=== PATIENT | male | born 1960 | race Caucasian/White ===

== ENCOUNTER 2020-08-27 19:27 | Inpatient (IN) ==
[2020-08-27 20:26] LABS: Basophils # (auto) 0.01 K/uL (0-0.2); Basophils % (auto) 0.1 %; Hematocrit (blood only) 37.7 % (42-52); Hemoglobin 12.9 g/dL (14.0-18.0); Immature Granulocytes # (auto) 0.03 K/uL (0.00-0.02); Immature Granulocytes % (auto) 0.4 %; Lymphocytes % (auto) 10.9 %; Mean Corpuscular Hemoglobin 28.5 pg (25-34); Mean Corpuscular Hgb Conc 34.2 g/dL (32-36); Mean Corpuscular Volume 83.2 fL (80-100); Mean Platelet Volume 9.7 fL (7.4-10.4); Monocytes # (auto) 0.44 K/uL (0.11-0.59); Monocytes % (auto) 5.3 %; Neutrophils # (auto) 6.85 K/uL (1.4-6.5); Neutrophils % (auto) 83.3 %; Platelet Count 287 K/uL (130-400); RDW Coefficient of Variation 12.7 % (11.5-14.5); RDW Standard Deviation 38.6 fL (36.4-46.3); Red Blood Count 4.53 M/uL (4.7-6.1); White Blood Count 8.23 K/uL (4.8-10.8)
[2020-08-27 20:38] LABS: Prothrombin Time 10.6 Seconds (9.0-12.0)
[2020-08-27 20:47] LABS: Alanine Aminotransferase 108 U/L (12-78); Albumin Level 2.5 gm/dl (3.4-5.0); Aspartate Aminotransferase 102 U/L (15-37); BUN Creatinine Ratio 17.4 (10-20); Blood Urea Nitrogen 21 mg/dl (7-18); Calcium 8.5 mg/dl (8.5-10.1); Carbon Dioxide 24 mmol/L (21-32); Chloride 98 mmol/L (98-107); Est GFR (African American) 77.8 ml/min; Est GFR (Non-African American) 67.1 ml/min; Glucose 218 mg/dl (70-99); Magnesium 2.1 mg/dl (1.8-2.4); Potassium 3.8 mmol/L (3.5-5.1); Sodium 128 mmol/L (136-145)
[2020-08-27 20:49] LABS: D Dimer 1490 ug/L FEU (0-500)
[2020-08-27 20:50] LABS: Albumin Globulin Ratio 0.6 (0.9-2); Alkaline Phosphatase 168 U/L (45-117); Bilirubin,Total 0.6 mg/dl (0.2-1); Globulin 4.5 gm/dl (2.5-4.0); Troponin I < 0.015 ng/ml (0-0.045)
[2020-08-27] MEDS ORDERED: dexAMETHasone**PF** 10 MG/ML VIAL IV ONE (21:01)
[2020-08-27] MEDS ORDERED: SODIUM CHLORIDE 0.9% 1000ML 500 ML IV ONE (21:01)
[2020-08-27] MEDS ORDERED: ACETAMINOPHEN 500 MG TAB PO STA (21:05)
--- NOTE | 2020-08-27 21:07 | XRay Report ---
XR chest 1V portable HISTORY: Shortness of breath. COMPARISON: None. FINDINGS: No pneumothorax. No pleural effusions. The cardiac silhouette is top normal in size. Multif ocal bilateral airspace opacities most pronounced within the mid to lower lung zones. This favors a m oderate multifocal pneumonia. IMPRESSION: Multifocal bilateral airspace opacities likely representing a moderate viral pneumonia. ACT 112: Negative or not required by law. Electronically signed by: Zachariah Jin M.D. 08/27/2020 9:06 PM
[2020-08-27] MEDS ORDERED: OPTIRAY 350 500ml IV ONE (22:14)
--- NOTE | 2020-08-27 22:39 | Emergency Department Note ---
Impression & Plan Pneumonia due to COVID-19 virus, Hypoxia, Breathlessness ED Provider Note Provider: Benitez Us MD DATE OF SERVICE: 08/27/2020 CHIEF COMPLAINT: Shortness of breath, Covid HISTORY OF PRESENT ILLNESS: Patient is a 60-year-old gentleman presented today via ambulance stating he is 12 days into a Covid infection complaining of shortness of breath and hypoxia. Evidently has been sick at home. Several days ago seen at [place] emergency department and given an inhaler. States last several days his is found oxygen for use at home but he is noted his pulse ox up into the 80s even on this oxygen. He is very short of breath and states he feels weak and very tired and having some nausea and diarrhea at times. He feels very thirsty and dehydrated. Denies significant leg swelling or any falls or fainting. EMS was placed the patient on 6 L of oxygen a satting in the mid 90s. States he has not had much to eat or drink today and last took some Tylenol in the afternoon for intermittent fevers. States his is doing okay at home. REVIEW OF SYSTEMS: A total of 10 review of systems was obtained and negative except as stated above in the HPI. PAST MEDICAL HISTORY: As noted above MEDICATIONS: Reviewed with the patient he denies significant home prescription medications to me. SOCIAL HISTORY: , lives at home in [place], non-smoker PHYSICAL EXAM: GENERAL: alert and oriented seated on the stretcher with nasal cannula oxygen in place appears to be breathing hard Head: normocephalic and atraumatic EYES: No injection, discharge or icterus. NECK: Trachea midline. LUNGS: Airway patent. No retractions but some increased work of breathing. No significant wheeze appreciated. Tachypnea. HEART: Regular rate and rhythm. No chest wall tenderness ABDOMEN: Soft and non-tender, without guarding or rebound. SKIN: Acyanotic, warm, dry, without rashes EXTREMITIES: Without swelling, tenderness or deformity NEUROLOGICAL: No focal deficits. No aphasia. No facial droop or slurred speech. EK beats per normal sinus rhythm. No PVC or PAC. Right bundle branch block is noted with a QTC of 460. Inferior T wave inversions are noted as well as anterior T wave inversions. No priors are available. CONTINUOUS CARDIAC MONITORING: was ordered and showed a heart rate of 70s to 90s bpm in normal sinus rhythm Patient's laboratory studies and imaging reviewed. Differential includes Reactive airway disease, pneumonia, pneumothorax, COPD, CHF, infections, cardiac ischemia, pulmonary embolism, musculoskeletal, gastrointestinal, as well as other pathologies. IMPRESSION/MEDICAL DECISION MAKING: Patient presents hypoxic chest x-ray finding consistent with Covid and known Covid positive. Tachypneic here. Febrile here. Given Tylenol IV fluids and does have evidence of hyponatremia. D-dimer elevated CT of the chest to exclude PE will be obtained given his hypoxia. Covid could explain this as well. Troponin is undetectable however EKG does question some T wave inversions although the patient's not having active chest pain. Given IV dexamethasone here given his hypoxic status with Covid. Given his length of illness doubt that additional other medications such as remdesivir at this time would be that beneficial. No significant leukocytosis and have a low suspicion at this time the patient suffering from bacterial infection. AST and ALT mildly elevated likely consistent with his viral infection. Discussed with the patient and recommended admission he was in agreement. Patient reports he had a [facility] PCP in [place] who retired a few years ago and has not been to the doctor since. Discussed with the [facility] hospitalist the patient and his PCP status and he was agreeable to bring the patient in for further care at this time. CTA study as below reported without evidence of PE. Patient advises on reassessment appears more comfortable while resting in bed on 6 L of oxygen. DIAGNOSIS: COVID-19 pneumonia, hypoxia, shortness of breath, hyponatremia DISPOSITION: Hospitalist will evaluate Patient was agreeable with this plan. Preliminary Findings Only See Final Report For Complete Findings CTA CHEST: No definite CT evidence for pulmonary embolism. No thoracic aortic aneurysm or dissection. Moderate patchy bilateral airspace and ground-glass opacities consistent with history of atypical pneumonia. Mild mediastinal and bilateral hilar lymphadenopathy which may be reactive. Hepatic steatosis. No acute osseous abnormality. Radiologist: Roly Oneill M.D. Study ready at 22:46 and initial results transmitted at 23:37 Past Med/Surg History Social History Smoking Status: Never smoker Preferred Language: Georgian Feels Safe at Home: Yes Gender Identity: Male Allergies Allergies Allergy/AdvReac Type Severity Reaction Status Date / Time Penicillins Allergy Unknown "Reaction Unverified 08/27/20 21:00 as Child" Home Meds Home Medications Medication Instructions Recorded Confirmed budesonide-formoterol [Symbicort] 2 puff INHALATION BID 08/27/20 08/27/20 Results & Data (ED) Vital Signs Vital Signs - 24 hr 08/27/20 19:33 08/27/20 20:31 08/27/20 21:06 Temperature 38.7 C H Temperature Source Oral Pulse Rate 93 H Pulse Rate [Right Finger] 90 92 H Pulse Rhythm [Right Finger] Respiratory Rate 19 30 H 21 Respiratory Effort / Characteristics Non-Labored Spontaneous Non-Labored Labored Respiratory Depth Normal Normal Normal Respiratory Pattern Regular Blood Pressure 162/85 H Blood Pressure [Left Arm] 168/89 H Blood Pressure Mean 110 Blood Pressure Mean [Left Arm] 115 Pulse Oximetry 96 96 88 L Oxygen Delivery Method Room Air Nasal Cannula Nasal Cannula Oxygen Flow Rate 6 2 Sepsis Recent Fever Within 48 Hours No Sepsis New/Unexplained Change in Mental Status N/A Sepsis Action Taken by Nursing No Action Required 08/27/20 21:33 08/27/20 22:29 08/27/20 22:58 Temperature 37.2 C Temperature Source Oral Pulse Rate Pulse Rate [Right Finger] 89 81 79 Pulse Rhythm [Right Finger] Regular Respiratory Rate 29 H 28 H 21 Respiratory Effort / Characteristics Labored Respiratory Depth Normal Normal Respiratory Pattern Blood Pressure Blood Pressure [Left Arm] 126/73 119/71 Blood Pressure Mean Blood Pressure Mean [Left Arm] 90 87 Pulse Oximetry 95 95 94 Oxygen Delivery Method Nasal Cannula Nasal Cannula Oxygen Flow Rate 6 6 Sepsis Recent Fever Within 48 Hours Sepsis New/Unexplained Change in Mental Status Sepsis Action Taken by Nursing Laboratory Data Result diagrams: 08/27/20 19:44 08/27/20 19:44 Lab Results 08/27/20 08/27/20 08/27/20 Range/Units 19:44 19:44 19:44 WBC 8.23 (4.8-10.8) K/uL RBC 4.53 L (4.7-6.1) M/uL Hgb 12.9 L (14.0-18.0) g/dL Hct 37.7 L (42-52) % MCV 83.2 (80-100) fL MCH 28.5 (25-34) pg MCHC 34.2 (32-36) g/dL RDW Std Deviation 38.6 (36.4-46.3) fL RDW Coeff of Nadiya 12.7 (11.5-14.5) % Plt Count 287 (130-400) K/uL MPV 9.7 (7.4-10.4) fL Immature Gran % (Auto) 0.4 % Neut % (Auto) 83.3 % Lymph % (Auto) 10.9 % [place] % (Auto) 5.3 % Eos % (Auto) 0.0 % Baso % (Auto) 0.1 % Neut # (Auto) 6.85 H (1.4-6.5) K/uL Lymph # (Auto) 0.90 L (1.2-3.4) K/uL [place] # (Auto) 0.44 (0.11-0.59) K/uL Eos # (Auto) 0.00 (0-0.5) K/uL Baso # (Auto) 0.01 (0-0.2) K/uL Immature Gran # (Auto) 0.03 H (0.00-0.02) K/uL PT 10.6 (9.0-12.0) Seconds INR 1.0 (0.9-1.1) APTT 27.0 (21.0-31.0) Seconds PTT Ratio 1.0 D-Dimer 1490 H* (0-500) ug/L FEU Sodium 128 L (136-145) mmol/L Potassium 3.8 (3.5-5.1) mmol/L Chloride 98 (98-107) mmol/L Carbon Dioxide 24 (21-32) mmol/L Anion Gap 6.0 (3-11) BUN 21 H (7-18) mg/dl Creatinine 1.18 (0.6-1.4) mg/dl Est Cr Clr Drug Dosing 81.0 ml/min Est GFR ( Amer) 77.8 ml/min Est GFR (Non-Af Amer) 67.1 ml/min BUN/Creatinine Ratio 17.4 (10-20) Glucose 218 H (70-99) mg/dl Calcium 8.5 (8.5-10.1) mg/dl Magnesium 2.1 (1.8-2.4) mg/dl Total Bilirubin 0.6 (0.2-1) mg/dl AST 102 H (15-37) U/L ALT 108 H (12-78) U/L Alkaline Phosphatase 168 H (45-117) U/L Troponin I < 0.015 (0-0.045) ng/ml Total Protein 7.0 (6.4-8.2) gm/dl Albumin 2.5 L (3.4-5.0) gm/dl Globulin 4.5 H (2.5-4.0) gm/dl Albumin/Globulin Ratio 0.6 L (0.9-2) Administered Medications Discontinued Medications Acetaminophen (Acetaminophen 500 Mg Tab) 1,000 mg PO NOW STA Stop: 08/27/20 21:06 Last Admin: 08/27/20 21:17 Dose: 1,000 mg Documented by: [id number] Dexamethasone Sodium Phosphate (DexamethasonePf 10 Mg/Ml Vial) 10 mg IV NOW ONE Stop: 08/27/20 21:02 Last Admin: 08/27/20 21:17 Dose: 10 mg Documented by: [id number] Sodium Chloride (Nss 1000ml) 500 mls @ 999 mls/hr IV .Q31M ONE Stop: 08/27/20 21:31 Last Infusion: 08/27/20 21:49 Dose: 0 mls/hr Documented by: [id number] Admin: 08/27/20 21:17 Dose: 999 mls/hr Documented by: [id number] Ioversol (Optiray 350 500ml) 102 ml IV ONCE ONE Stop: 08/27/20 22:15 Last Admin: 08/27/20 22:15 Dose: 102 ml Documented by: [id number] Imaging Data Radiologist's Impression: Chest X-Ray 08/27/20 20:15 XR chest 1V portable HISTORY: Shortness of breath. COMPARISON: None. FINDINGS: No pneumothorax. No pleural effusions. The cardiac silhouette is top normal in size. Multifocal bilateral airspace opacities most pronounced within the mid to lower lung zones. This favors a moderate multifocal pneumonia. IMPRESSION: Multifocal bilateral airspace opacities likely representing a moderate viral pneumonia. ACT 112: Negative or not required by law. Electronically signed by: Zachariah Jin M.D. 08/27/2020 9:06 PM Discharge Plan Visit Data Chief Complaint: Shortness of Breath/Dyspnea Stated Complaint: SOB, COVID + ED Provider: Benitez Us Discharge Problem: Pneumonia due to COVID-19 virus, Hypoxia, Breathlessness Patient Disposition: Being Evaluated by Hospitalist Forms Stand Alone Forms: My [facility] Prescriptions Prescriptions: No Action budesonide-formoterol [Symbicort] 80-4.5 mcg/actuation Hfa Aerosol Inhaler 2 puff INHALATION BID RF: 0 Referrals Referrals: PCP,NO [Primary Care Provider] -
[2020-08-28] MEDS ORDERED: SODIUM CHLORIDE 0.9% 1000ML 1,000 ML IV SCH (01:36)
[2020-08-28] MEDS ORDERED: ACETAMINOPHEN 325 MG TAB PO PRN (01:36)
[2020-08-28] MEDS ORDERED: GLUCOSE 10 TABS/TUBE PO PRN (02:00)
[2020-08-28] MEDS ORDERED: CARBOHYDRATES FOR HYPOGLYCEMIA PO PRN (02:00)
[2020-08-28] MEDS ORDERED: GLUCOSE 40% GEL 15 GM TUBE PO PRN (02:00)
[2020-08-28] MEDS ORDERED: DEXTROSE 50% 50 ML SYRINGE IV PRN (02:00)
[2020-08-28] MEDS ORDERED: GLUCAGON FOR INJ 1 MG VIAL IM PRN (02:00)
--- NOTE | 2020-08-28 04:44 | History and Physical Report ---
DATE OF ADMISSION: 08/28/2020 CHIEF COMPLAINT: Shortness of breath. HISTORY OF PRESENT ILLNESS: This is a 60-year-old male with no significant past medical history, having COVID kind of symptoms since about 11 days; On 08/22/2020, he went to the [facility] ER. Prior to that 4 days ago he was diagnosed with COVID and was having symptoms from 7 days prior to ER visit.. His oxygen levels were 94% on room air, ambulatory pulse ox was okay. So he was discharged on budesonide inhalers. However, the patient was getting progressively more short of breath, so that is why came here. He was saturating 88% on room air, currently on 6 liters he is saturating 94%. He is profusely sweating. He says he has a dry cough and fevers, sore throat and chest pain from the cough, poor appetite, not eating much. Food does not taste him good, but no loss of sense of smell or taste. No headache, no blurred visions, no earache, no runny nose, no nausea, no abdominal pain. Has diarrhea over several days. Denies any blood in stools or black stools. Normal bowel movements. Ambulating okay. ALLERGIES: PENICILLINS. PAST MEDICAL HISTORY: As mentioned above. PAST SURGICAL HISTORY: Cholecystectomy, hernia repair. MEDICATIONS: Budesonide, Symbicort 2 puffs inhalation b.i.d. FAMILY HISTORY: Significant for mother has arthritis, father has diabetes and heart disorder. SOCIAL HISTORY: Denies any smoking. No alcohol use, no drug use. REVIEW OF SYSTEMS: As per HPI. Rest of the review of systems negative. PHYSICAL EXAMINATION: GENERAL: The patient is of moderate build, not in acute distress. VITAL SIGNS: Temperature T-max 38.7, pulse 79, respiratory rate 21, blood pressure 119/71, oxygen 88% on room air, currently 94% on 6 liters. HEENT: Pupils equal, round, and reactive to light. Oral mucosa moist. NECK: No JVD. No neck masses. CARDIOVASCULAR: S1, S2 heard, regular rate and rhythm, no murmur, no gallop. RESPIRATORY SYSTEM: Normal AP diameter. No accessory muscle use. No wheezing, no crackles. ABDOMEN: Soft, bowel sounds present, nontender. No distention. CENTRAL NERVOUS SYSTEM: Cranial nerves II-XII grossly intact. Nonfocal. EXTREMITIES: No edema, no erythema. LABORATORY DATA: WBC is 8.2, hemoglobin 12.9, hematocrit 37.7, platelets 287. PT 10.6, INR 1, APTT 27. D-dimer 1490. Sodium 128, potassium 3.8, chloride 98, bicarbonate 24, BUN 21, creatinine 1.1, serum glucose 218, calcium 8.5, magnesium 2.1, total bilirubin 0.6, AST 102, ALT 108, alkaline phosphatase 168, troponin I less than 0.015. IMAGING DATA: Chest x-ray, multifocal bilateral airspace opacities likely representing moderate viral pneumonia. CT of the chest, no PE, multifocal pneumonia, moderate pneumonia on the preliminary report. EKG: Normal sinus rhythm at a rate of 93, right bundle branch block, no previous ECGs available. ASSESSMENT AND PLAN: This is a 60-year-old male who presents with COVID pneumonia. 1. COVID pneumonia: Having symptoms for more than 11 days from now. LFTs, has transaminitis. Creatinine is okay. D-dimer is elevated at 1490. CTA chest, no PE,multifocal pneumonia, moderate, requiring 6 liters oxygen currently. Starting on dexamethasone 6 mg daily.As the patient has more than 10 days of symptoms remdesivir may not be of any benefit. Will follow the LFTs and follow the labs. Continue with Decadron 6 mg daily, oxygen supplementation. Follow the inflammatory markers. 2. Hyponatremia, possibly from poor intake. We will start him on gentle fluids 1 liter bag. Follow the repeat labs in the a.m. Follow the serum osmolality, urine osmolality, and urine sodium levels. 3. Hyperthyroidism: With sugars more than 200. Will follow HbA1c level. Will placed him on insulin sliding scale. 4. Deep venous thrombosis prophylaxis: Lovenox. DISPOSITION: Monitor in the tele floor. Level 1 full code. Expect to discharge home and follow with family doctor. YIN
[2020-08-28 07:49] LABS: Basophils # (auto) 0.03 K/uL (0-0.2); Basophils % (auto) 0.4 %; Hematocrit (blood only) 44.1 % (42-52); Immature Granulocytes # (auto) 0.02 K/uL (0.00-0.02); Immature Granulocytes % (auto) 0.3 %; Lymphocytes # (auto) 1.16 K/uL (1.2-3.4); Lymphocytes % (auto) 16.7 %; Mean Corpuscular Hemoglobin 28.6 pg (25-34); Mean Platelet Volume 9.7 fL (7.4-10.4); Monocytes % (auto) 1.4 %; Neutrophils # (auto) 5.62 K/uL (1.4-6.5); Neutrophils % (auto) 81.2 %; Platelet Count 335 K/uL (130-400); RDW Coefficient of Variation 12.9 % (11.5-14.5); RDW Standard Deviation 39.4 fL (36.4-46.3); Red Blood Count 5.25 M/uL (4.7-6.1); White Blood Count 6.93 K/uL (4.8-10.8)
--- NOTE | 2020-08-28 07:51 | CT Scan Report ---
CT ANGIOGRAM OF THE CHEST CLINICAL HISTORY: Hypoxia. Elevated d-dimer. Covid. COMPARISON STUDY: Chest x-ray dated 08/27/2020. TECHNIQUE: Following the IV administration of 102 cc of Optiray 350, CT angiogram of the chest was pe rformed from the upper abdomen to the thoracic inlet utilizing the pulmonary embolus protocol. Images are reviewed in the axial, sagittal, and coronal planes. 3-D MIPS images are created and assessed. I V contrast was administered without complication. A dose lowering technique was utilized adhering to the principles of ALARA. CT DOSE: 549.80 mGy.cm FINDINGS: Thyroid: Imaged portions of the thyroid gland are normal in size and attenuation. Thoracic aorta: The thoracic aorta is normal in caliber and demonstrates standard 3-vessel arch anato my. No dissection is seen. Pulmonary vasculature: The pulmonary trunk is normal in caliber. There are no filling defects identif ied in main, lobar, or segmental pulmonary branches to suggest pulmonary embolus. Heart: The heart is enlarged and without pericardial effusion. There are scattered coronary artery ca lcifications. Lungs and pleural spaces: There is extensive/diffuse groundglass consolidation seen throughout both l ungs. The trachea and central airways are clear. Trace pleural effusions are identified. Mediastinum: There are numerous mildly enlarged mediastinal nodes which measure up to 11 mm in short axis. Cecilia: Mildly enlarged hilar nodes measure up to 12 mm in short axis. Axillae: There is no axillary lymphadenopathy. Upper abdomen: The liver is steatotic. Partially visualized upper abdominal viscera is within normal limits. Skeletal structures: No lytic or blastic bony lesions are seen. Mild spondylotic change is noted in t he thoracic spine. IMPRESSION: 1. There is no evidence of pulmonary embolus in the main, lobar, or segmental pulmonary arteries. 2. Extensive groundglass consolidation is seen throughout both lungs and consistent with the reported history of a viral pneumonia. Radiographic follow-up to resolution is recommended. 3. Cardiomegaly and trace pleural effusions. 4. Mildly enlarged mediastinal and hilar lymph nodes are likely reactive. 5. Hepatic steatosis. 6. Additional findings as above. ACT 112: Negative or not required by law. Electronically signed by: Asher Flannery M.D. 08/28/2020 7:50 AM
[2020-08-28] MEDS ORDERED: PHARMACY GLYCEMIC MGMT CONSULT PRN (08:08)
[2020-08-28 08:17] LABS: D Dimer 1530 ug/L FEU (0-500)
[2020-08-28 08:43] LABS: Albumin Level 2.9 gm/dl (3.4-5.0); Bilirubin Direct 0.2 mg/dl (0-0.2); Bilirubin,Total 0.6 mg/dl (0.2-1); Total Protein 8.4 gm/dl (6.4-8.2)
[2020-08-28 08:53] LABS: BUN Creatinine Ratio 18.3 (10-20); Blood Urea Nitrogen 24 mg/dl (7-18); Calcium 9.1 mg/dl (8.5-10.1); Carbon Dioxide 24 mmol/L (21-32); Chloride 101 mmol/L (98-107); Creatinine Clr Calc Pharmacy 69.7 ml/min; Est GFR (African American) 67.3 ml/min; Est GFR (Non-African American) 58.1 ml/min; Glucose 369 mg/dl (70-99); Magnesium 2.8 mg/dl (1.8-2.4); Potassium 4.2 mmol/L (3.5-5.1); Sodium 133 mmol/L (136-145)
[2020-08-28] MEDS ORDERED: REMDESIVIR 200 MG in SODIUM CHLORIDE 0.9% 210 ML IV STA (08:57)
[2020-08-28] MEDS ORDERED: DOXYCYCLINE HYCLATE 100 MG in DEXTROSE 5% 100 ML IV SCH (09:00)
[2020-08-28] MEDS ORDERED: SODIUM CHLORIDE 0.9% 10ML FLUSH IV SCH (09:00)
--- NOTE | 2020-08-28 09:06 | Pharmacy Report ---
Pharmacy Glycemic Short Note 2 - Date of Service August 28, 2020 - Glycemic Short BSG Results (Last 24 hours): 08/27/20 08/28/20 08/28/20 19:44 07:27 07:34 Glucose 218 H 369 H* POC Glucose 367 H* 08/28/20 07:35 Glucose POC Glucose 368 H* OUTPATIENT ANTIDIABETIC REGIMEN: * N/A * A1c = pending 08/28/20 ASSESSMENT: * 60yo male without previous hx of DM. A1c pending. Pt with SEVERE hyperglycemia secondary to illness and steroids. Possibly undiagnosed DM. * Pt given 10mg IV DXM in ED; starting DXM 6mg IV daily for COVID PNA * Will start on a weight based insulin regimen for steroid induced hyperglycemia and titrate based on BSG trends. * The dose of NPH given is dependent on the steroid dose given * For steroid doses of equivalent prednisone 40mg/day or above NPH dose should be 0.4 units/kg * NPH dosing above is given in addition to patients basal insulin needs * Typically, patients will also need rapid-acting insulin with meals PLAN FOR INPATIENT GLYCEMIC CONTROL: * Basal insulin- n/a; hold until A1c results * Steroid induced hyperglycemia * NPH 38 units (0.4 units/kg) SQ daily with DXM * Bolus insulin * NovoLog per scale ACHS or Q6hrs while NPO * Goal Range: Low 110 mg/dL - High 140 mg/dL * Correction Factor: 20 mg/dL/unit * Nutritional / Prandial insulin per carb ratio of 1 unit per 7 grams CHO consumed PLAN FOR DISCHARGE: * TBD based on A1c and steroid taper
[2020-08-28 09:07] LABS: Beta-Hydroxybutyrate 5.85 mg/dl (0.2-2.81); Ferritin 2746.5 ng/ml (8-388); Troponin I < 0.015 ng/ml (0-0.045)
[2020-08-28] MEDS: ENOXAPARIN INJ 40 MG/0.4 ML SYR SQ SCH (09:34)
[2020-08-28] MEDS: INSULIN HUMAN NPH SC SCH (09:45)
[2020-08-28 09:47] LABS: Estimated Average Glucose 275 mg/dl; Hemoglobin A1C 11.2 % (4.5-5.6)
--- NOTE | 2020-08-28 09:54 | Pulmonary Consultation ---
Date of Consultation August 28, 2020 Assessment & Plan (1) Acute respiratory failure with hypoxia: CT chest 08/27/2020 personally reviewed: Diffuse bilateral groundglass opacities appreciated mostly peripheral. Insignificant mediastinal adenopathy --Acute hypoxic respiratory failure Secondary to COVID-19 pneumonia Patient was diagnosed with COVID-19 approximately 14 days ago. CRP 18, procalcitonin 1.56 D-dimer 1530 Patient is not a candidate for remdesivir as he is out of the timeline Continue with dexamethasone 6 mg for total of 10 days Given elevated procalcitonin continue with atypical antibiotics for 5 days Plan: Add guaifenesin. Continue with incentive spirometry and flutter valve Awake proning will be helpful Patient CRP is elevated. We will see if the patient CRP is elevated even tomorrow we will give the patient Tocilizumab If the patient gets in respiratory distress even on high flow neck step would be BiPAP Case was discussed with Dr. Kent Please note the above document was generated using voice recognition software. It may contain grammatical, syntax or spelling errors.Any formal questions or concerns about the content, text or information contained within the body of this dictation should be directly addressed to the provider for clarification. (2) Pneumonia due to COVID-19 virus: (3) Shortness of breath: History of Present Illness Attending Physician: Anika Kent MD History of Present Illness 60-year-old male with no significant past medical history presented to the hospital with complaints of worsening shortness of breath. Patient said that he has been having symptoms for approximately 2 weeks. Pulmonary consulted for high requirement of oxygen He was supposed to go back to work in 2 days if he did not have any symptoms. At the time of examination patient was on high flow 30 L, 55% saturating 94% He was in mild respiratory distress. He was talking in full sentences. He denies any chest pain. He says he does get significant short of breath when he is exerting himself. He complains of cough but is not bringing up any phlegm. He does have a feeling of chest congestion. Denies any hemoptysis. No diarrhea, no dysuria. Social history: Non-smoker, no illicit drug use, no alcohol use. Does [employer] work. No exposure to any chemicals or fumes. 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 Beliefs That Will Affect Care: None Current Living Situation: Spouse Other Information That Helps Us Care for You: No Feels Safe at Home: Yes Safety Concerns: Feels Safe At This Time Gender Identity: Male Assistive Devices: Oxygen - Continuous Review of Systems Review of Systems: All systems reviewed & are unremarkable except as noted in HPI & below Physical Exam Physical Exam: Constitutional: In mild respiratory distress HEENT: EOMI, PERRLA Respiratory system: Decreased air entry bilaterally, no wheeze, no rhonchi, positive crackles bilateral lower lobe CVS: S1-S2 positive, no murmurs or gallops Abdomen: Soft, nontender, nondistended, positive bowel sounds x4 Extremities: +2 pulses bilaterally radialis/ dorsalis pedis, no cyanosis, no edema, no clubbing Neuro: Awake alert oriented x3 Psych: Normal mood and affect G/U: No Romero Skin: no rashes, warm and dry Lymphatic: no cervical or axillary lymphadenopathy Results & Data Results & Data ([facility]) Vital Signs (Past 12 Hours) Vital Signs Temp Pulse Pulse Resp BP BP Pulse Ox 08/28/20 07:24 36.6 C 99 H 28 H 128/82 91 08/28/20 07:15 64 08/28/20 04:37 36.4 C L 67 18 110/71 94 08/28/20 01:36 36.3 C L 66 27 H 120/79 98 08/28/20 00:45 68 24 132/88 98 08/28/20 00:26 69 24 136/98 98 08/27/20 22:58 79 21 119/71 94 08/27/20 22:29 37.2 C 81 28 H 126/73 95 08/28/20 07:27 08/28/20 07:27 PG Care Time/CCT Total # of Minutes Spent Total Time Spent with Patient: Total time spent is greater than 50% in coordination of care (as documented) at patient's floor/unit and/or counseling patient: Coding Level of Care Code 60252 Inpt Consult Level 4 Diagnoses Acute respiratory failure with hypoxia J96.01 Pneumonia due to COVID-19 virus U07.1; J12.82 Shortness of breath R06.02
[2020-08-28] MEDS: INSULIN ASPART 100 UNITS/ML 3 ML PEN SC SCH ×4 (10:03→21:33)
[2020-08-28] MEDS ORDERED: INSULIN HUMAN REGULAR PER UNIT 10 UNITS in SYRINGE 9.9 ML IV ONE (11:45)
[2020-08-28] MEDS ORDERED: INSULIN GLARGINE SOLOSTAR 100 UNITS/ML 3 ML PEN SC ONE (11:45)
--- NOTE | 2020-08-28 13:19 | Communication Note ---
Date of Service: August 28, 2020 Patient admitted earlier today with acute hypoxemic respiratory failure secondary to COVID-19 pneumonia Currently requiring high flow oxygen, CT chest shows bilateral extensive infiltrate suggestive of viral infection. Patient is more than 10 days of symptoms, positive Covid test, Beyond the scope of IV remdesivir treatment Appreciate input from pulmonology, patient will continue on high flow oxygen, IV Decadron, pharmacy consulted for glycemic management as patient develop steroid-induced hyperglycemia Mild elevation of procalcitonin, will add doxycycline for possible underlying bronchitis/bacterial pneumonia. Elevated inflammatory markers: CRP/D-dimer noted, Per pulmonology, if repeat CRP continues to stay elevated in tomorrow's lab Patient will need IV Tocilizumab Patient's will be updated over phone. Anika Kent MD
[2020-08-28] MEDS ORDERED: INSULIN ASPART 100 UNITS/ML 3 ML PEN SC SCH (14:00)
[2020-08-28] MEDS: FLUTICASONE/VILANTEROL 100/25MCG 14 PUFFS/INHALER INH SCH (14:19)
[2020-08-28] MEDS ORDERED: INSULIN REGULAR 250 UNITS in SODIUM CHLORIDE 0.9% 247.5 ML IV SCH (14:30)
--- NOTE | 2020-08-28 15:19 | Electrocardiogram Report ---
Test Reason : Blood Pressure : / mmHG Vent. Rate : 093 BPM Atrial Rate : 093 BPM P-R Int : 136 ms QRS Dur : 138 ms QT Int : 370 ms P-R-T Axes : 032 120 -14 degrees QTc Int : 460 ms Normal sinus rhythm Right bundle branch block T wave abnormality, consider inferior ischemia Abnormal ECG No previous ECGs available Confirmed by Maxwell Beauchamp ([id number]) on 08/28/2020 3:19:00 PM Referred By: REFERRED SELF Confirmed By:Maxwell Beauchamp
--- NOTE | 2020-08-28 16:44 | Communication Note ---
Date of Service: August 28, 2020 Called patient's phone number #[phone] Patient was tested positive for COVID-19 approximately 14 days ago Started with fever and chills and body aches, Progressively worsened to difficult to breathe/cough/lack of taste and smell Past 3 days before coming to the ER patient was struggling to breathe, Plan of care and current clinical status updated with , all questions answered request to have phone call update every day if possible. Anika Kent MD
[2020-08-28] MEDS: dexAMETHasone 6 MG in SYRINGE 0 ML IV SCH (20:39)
[2020-08-28] MEDS: DOXYCYCLINE HYCLATE 100 MG in 0.9 % SODIUM CHLORIDE 100 ML IV SCH (21:32)
[2020-08-28] MEDS: guaiFENesin 600 MG TABCR PO SCH (21:32)
[2020-08-29] MEDS ORDERED: Nursing to Pharmacy Communication SCH (02:45)
[2020-08-29] MEDS: DC IV INSULIN INFUSION 1 EA DEVI SCH ×4 (05:15→05:20)
[2020-08-29] MEDS: Nursing to Pharmacy Communication SCH ×3 (05:18→05:21)
[2020-08-29 07:04] LABS: Hemoglobin 12.6 g/dL (14.0-18.0); Mean Corpuscular Hemoglobin 28.4 pg (25-34); Mean Corpuscular Hgb Conc 34.1 g/dL (32-36); Mean Corpuscular Volume 83.3 fL (80-100); Mean Platelet Volume 9.6 fL (7.4-10.4); Platelet Count 340 K/uL (130-400); RDW Coefficient of Variation 12.9 % (11.5-14.5); RDW Standard Deviation 38.8 fL (36.4-46.3); Red Blood Count 4.44 M/uL (4.7-6.1); White Blood Count 13.73 K/uL (4.8-10.8)
[2020-08-29] MEDS: INSULIN ASPART 100 UNITS/ML 3 ML PEN SC SCH ×4 (07:45→22:06)
[2020-08-29 07:54] LABS: BUN Creatinine Ratio 28.5 (10-20); Calcium 8.5 mg/dl (8.5-10.1); Creatinine Clr Calc Pharmacy 87.5 ml/min; Est GFR (African American) 88.6 ml/min; Est GFR (Non-African American) 76.4 ml/min; Potassium 4.3 mmol/L (3.5-5.1)
[2020-08-29 08:07] LABS: Ferritin 2070.1 ng/ml (8-388)
[2020-08-29] MEDS: DOXYCYCLINE HYCLATE 100 MG in 0.9 % SODIUM CHLORIDE 100 ML IV SCH ×2 (08:43→20:09)
[2020-08-29] MEDS: guaiFENesin 600 MG TABCR PO SCH ×2 (08:44→20:09)
[2020-08-29] MEDS ORDERED: INSULIN GLARGINE SOLOSTAR 100 UNITS/ML 3 ML PEN SC SCH (09:00)
[2020-08-29] MEDS ORDERED: REMDESIVIR 100 MG in SODIUM CHLORIDE 0.9% 230 ML IV SCH (09:00)
[2020-08-29] MEDS: ENOXAPARIN INJ 40 MG/0.4 ML SYR SQ SCH (09:02)
[2020-08-29] MEDS: INSULIN GLARGINE SOLOSTAR 100 UNITS/ML 3 ML PEN SC SCH (09:05)
[2020-08-29] MEDS: INSULIN HUMAN NPH SC SCH (09:05)
--- NOTE | 2020-08-29 10:10 | Pulmonology Progress Note ---
Date of Service August 29, 2020 Assessment & Plan (1) Acute respiratory failure with hypoxia: CT chest 08/27/2020 personally reviewed: Diffuse bilateral groundglass opacities appreciated mostly peripheral. Insignificant mediastinal adenopathy --Acute hypoxic respiratory failure Secondary to COVID-19 pneumonia Patient was diagnosed with COVID-19 approximately 14 days ago. CRP 18--> 10, procalcitonin 1.56 D-dimer 1530 Patient is not a candidate for remdesivir as he is out of the timeline Continue with dexamethasone 6 mg for total of 10 days Given elevated procalcitonin continue with atypical antibiotics for 5 days Plan: c/w guaifenesin. Continue with incentive spirometry and flutter valve Awake proning will be helpful CRP is trending down If the patient gets in respiratory distress even on high flow next step would be BiPAP Please note the above document was generated using voice recognition software. It may contain grammatical, syntax or spelling errors.Any formal questions or concerns about the content, text or information contained within the body of this dictation should be directly addressed to the provider for clarification. (2) Pneumonia due to COVID-19 virus: (3) Shortness of breath: Admission and Anticipated Discharge Date Admission Date: August 28, 2020 Subjective Patient seen and examined. Clinically doing better. Still complains of shortness of breath but it has improved compared to coming to the hospital. Denies any chest pain. No headache, no nausea or vomiting. Review of Systems Review of Systems: All systems reviewed & are unremarkable except as noted in Subjective Physical Exam Physical Exam: Constitutional: No acute distress HEENT: EOMI, PERRLA Respiratory system: Decreased air entry bilaterally, no wheeze, no rhonchi, positive crackles bilateral lower lobe CVS: S1-S2 positive, no murmurs or gallops Abdomen: Soft, nontender, nondistended, positive bowel sounds x4 Extremities: +2 pulses bilaterally radialis/ dorsalis pedis, no cyanosis, no edema, no clubbing Neuro: Awake alert oriented x3 Psych: Normal mood and affect G/U: No Romero Skin: no rashes, warm and dry Lymphatic: no cervical or axillary lymphadenopathy Results & Data Results & Data ([facility]) Vital Signs (Past 12 Hours) Vital Signs Temp Pulse Resp BP Pulse Ox Pulse Ox 08/29/20 09:00 92 08/29/20 08:00 37 C 68 20 127/62 92 08/29/20 04:00 37.5 C 70 17 106/68 97 08/28/20 23:35 36.8 C 77 17 119/70 92 08/29/20 06:29 08/29/20 06:29 PG Care Time/CCT Total # of Minutes Spent Total Time Spent with Patient: Total time spent is greater than 50% in coordination of care (as documented) at patient's floor/unit and/or counseling patient: Coding Level of Care Code 40789 Subseq Hosp Care Lvl 3 Diagnoses Acute respiratory failure with hypoxia J96.01 Pneumonia due to COVID-19 virus U07.1; J12.82 Shortness of breath R06.02
--- NOTE | 2020-08-29 11:00 | Pharmacy Report ---
Pharmacy Glycemic Short Note 2 - Date of Service August 29, 2020 - Glycemic Short BSG Results (Last 24 hours): 08/28/20 08/28/20 08/28/20 11:23 11:24 14:05 Glucose POC Glucose 424 H* 465 H* 352 H* 08/28/20 08/28/20 08/28/20 14:06 15:26 15:27 Glucose POC Glucose 375 H* 311 H* 331 H* 08/28/20 08/28/20 08/28/20 16:24 17:56 18:33 Glucose POC Glucose 255 H 249 H 251 H 08/28/20 08/28/20 08/28/20 19:33 20:35 21:30 Glucose POC Glucose 269 H 236 H 219 H 08/28/20 08/28/20 08/29/20 22:35 23:38 00:39 Glucose POC Glucose 225 H 214 H 217 H 08/29/20 08/29/20 08/29/20 01:33 02:35 04:02 Glucose POC Glucose 157 H 128 H 104 H 08/29/20 08/29/20 08/29/20 04:22 06:29 07:38 Glucose 128 H POC Glucose 114 H 143 H OUTPATIENT ANTIDIABETIC REGIMEN: * N/A * A1c = pending 08/28/20 ASSESSMENT: 08/29 * Pt has received 115 units of SQ insulin + ~ 60 units of IV insulin over the past 24hrs * 20 units of basal with Lantus * 38 units of basal for steroid induced hyperglycemia with NPH * 57 units of bolus with NovoLog * 60 units of IV insulin per IV insulin infusion * Severe hyperglycemia resolved with the addition of weight based SQ insulin + IV insulin infusion. * Pt continues on Dexamethasone 6mg IV daily; will continue with 0.4 units/kg NPH to cover DXM * Will add ~ 2/3 of IV insulin total dose to Sq basal bolus insulin regimen and titrate based on BSG trends. Increase Lantus from 20 to 45 units and tighten NovoLog CF/CR from 15/ to 10/4 respectively. 08/28 * 60yo male without previous hx of DM. A1c pending. Pt with SEVERE hyperglycemia secondary to illness and steroids. Possibly undiagnosed DM. * Pt given 10mg IV DXM in ED; starting DXM 6mg IV daily for COVID PNA * Will start on a weight based insulin regimen for steroid induced hyperglycemia and titrate based on BSG trends. * The dose of NPH given is dependent on the steroid dose given * For steroid doses of equivalent prednisone 40mg/day or above NPH dose should be 0.4 units/kg * NPH dosing above is given in addition to patients basal insulin needs * Typically, patients will also need rapid-acting insulin with meals PLAN FOR INPATIENT GLYCEMIC CONTROL: * Basal insulin * Lantus 45 units SQ daily * Steroid induced hyperglycemia * NPH 38 units (0.4 units/kg) SQ daily with DXM * Bolus insulin * NovoLog per scale ACHS or Q6hrs while NPO * Goal Range: Low 110 mg/dL - High 140 mg/dL * Correction Factor: 10 mg/dL/unit * Nutritional / Prandial insulin per carb ratio of 1 unit per 4 grams CHO consumed PLAN FOR DISCHARGE: * A1c = 11.2% * HbA1c of 6.5% or greater indicates "diagnosis of diabetes" --> ADA recommendation is to "Treat Diabetes" DC Recs: * A1c is greater than or equal to 10% --> consider triple therapy with metformin + basal insulin + (GLP1-RA OR prandial insulin). * Metformin XR 500mg PO daily with evening meal. Typically the XR formulation of metformin is better tolerated than the immediate release formulation. Continue to titrate metformin dosing upwards as recommended. Dosage increases should be made in increments of 500 mg weekly, up to 2,000 mg/day PO, given in divided doses. Doses above 2000 mg/day may be better tolerated if divided and given 3 times per day with meals. Max: 2,550 mg/day PO, in divided doses * B12 supplementation may be necessary with long-term metformin * Basal insulin: Formulation TBD based on insurance coverage & dosing TBD based on inpatient trends * GPL1RA: This will be based off of insurance coverage and patient preference of weekly vs daily injection OR Prandial insulin: Formulation TBD based on insurance coverage & dosing TBD based on inpatient trends Support Patient Self-Management * Healthy Lifestyle (diet, exercise, and smoking cessation) * Disease self-management (SMBG) * Prevention of complications (BP, Lipid goals, Immunizations) * Consider outpatient Diabetes Self-Management Education & Support
[2020-08-29] MEDS: FLUTICASONE/VILANTEROL 100/25MCG 14 PUFFS/INHALER INH SCH (11:33)
--- NOTE | 2020-08-29 16:24 | Hospitalist Progress Note ---
Date of Service August 29, 2020 Assessment & Plan Admission and Anticipated Discharge Date Admission Date: August 28, 2020 Results & Data Results & Data ([facility]) Vital Signs (Past 12 Hours) Vital Signs Temp Pulse Resp BP Pulse Ox Pulse Ox 08/29/20 14:00 37 C 65 16 122/80 94 08/29/20 09:00 92 08/29/20 08:00 37 C 68 20 127/62 92
[2020-08-29] MEDS: dexAMETHasone 6 MG in SYRINGE 0 ML IV SCH (20:09)
[2020-08-30] MEDS: INSULIN ASPART 100 UNITS/ML 3 ML PEN SC SCH ×6 (01:03→21:59)
[2020-08-30 07:29] LABS: C Reactive Protein 4.83 mg/dl (0-0.29); Creatinine Clr Calc Pharmacy 89.3 ml/min; Est GFR (African American) 91.7 ml/min; Est GFR (Non-African American) 79.1 ml/min
[2020-08-30 07:32] LABS: Ferritin 1690.2 ng/ml (8-388)
[2020-08-30] MEDS: DOXYCYCLINE HYCLATE 100 MG in 0.9 % SODIUM CHLORIDE 100 ML IV SCH (08:29)
[2020-08-30] MEDS: ENOXAPARIN INJ 40 MG/0.4 ML SYR SQ SCH (08:29)
[2020-08-30] MEDS: guaiFENesin 600 MG TABCR PO SCH ×2 (08:30→22:00)
[2020-08-30] MEDS: FLUTICASONE/VILANTEROL 100/25MCG 14 PUFFS/INHALER INH SCH (08:30)
[2020-08-30] MEDS: INSULIN GLARGINE SOLOSTAR 100 UNITS/ML 3 ML PEN SC SCH (09:18)
--- NOTE | 2020-08-30 13:39 | Pulmonology Progress Note ---
Date of Service August 30, 2020 Assessment & Plan (1) Acute respiratory failure with hypoxia: CT chest 08/27/2020 personally reviewed: Diffuse bilateral groundglass opacities appreciated mostly peripheral. Insignificant mediastinal adenopathy --Acute hypoxic respiratory failure Secondary to COVID-19 pneumonia Patient was diagnosed with COVID-19 approximately 14 days prior to admission CRP 18--> 10--> 4.83, procalcitonin 1.56 D-dimer 1530 Patient is not a candidate for remdesivir as he is out of the timeline Continue with dexamethasone 6 mg for total of 10 days Given elevated procalcitonin continue with atypical antibiotics for 5 days Plan: Keep the patient euvolemic to negative balance. c/w guaifenesin. Continue with incentive spirometry and flutter valve Continue with awake proning. Patient respiratory status has been stable since last 2 days. He has been saturating well on nasal cannula. Case discussed with Continue with the same regimen. Pulmonary will follow peripherally. Please call directly with any questions. Please note the above document was generated using voice recognition software. It may contain grammatical, syntax or spelling errors.Any formal questions or concerns about the content, text or information contained within the body of this dictation should be directly addressed to the provider for clarification. (2) Pneumonia due to COVID-19 virus: (3) Shortness of breath: Admission and Anticipated Discharge Date Admission Date: August 28, 2020 Subjective Patient seen and examined at bedside. No acute distress. No adverse events overnight. Patient has been self proning. The time of examination patient was saturating 90% on 7 L nasal cannula. He was about to have breakfast. Denies any chest pain. He has been using incentive spirometry as well as flutter valve. Denies any diarrhea, no blurry vision. He states he is feeling better compared to 2 days ago. Review of Systems Review of Systems: All systems reviewed & are unremarkable except as noted in Subjective Physical Exam Physical Exam: Constitutional: No acute distress HEENT: EOMI, PERRLA Respiratory system: Decreased air entry bilaterally, no wheeze, no rhonchi, positive crackles bilateral lower lobe CVS: S1-S2 positive, no murmurs or gallops Abdomen: Soft, nontender, nondistended, positive bowel sounds x4 Extremities: +2 pulses bilaterally radialis/ dorsalis pedis, no cyanosis, no edema, no clubbing Neuro: Awake alert oriented x3 Psych: Normal mood and affect G/U: No Romero Skin: no rashes, warm and dry Lymphatic: no cervical or axillary lymphadenopathy Results & Data Results & Data ([facility]) Vital Signs (Past 12 Hours) Vital Signs Temp Pulse Resp BP Pulse Ox Pulse Ox 08/30/20 12:00 91 08/30/20 11:49 36.7 C 70 18 110/67 89 L 08/30/20 11:00 91 08/30/20 09:00 92 08/30/20 08:07 37.0 C 75 20 97/53 L 91 08/30/20 04:38 64 12 104/67 93 08/29/20 06:29 08/30/20 06:48 PG Care Time/CCT Total # of Minutes Spent Total Time Spent with Patient: Total time spent is greater than 50% in coordination of care (as documented) at patient's floor/unit and/or counseling patient: Coding Level of Care Code 07460 Subseq Hosp Care Lvl 3 Diagnoses Acute respiratory failure with hypoxia J96.01 Pneumonia due to COVID-19 virus U07.1; J12.82 Shortness of breath R06.02
[2020-08-30] MEDS ORDERED: INSULIN HUMAN NPH SC SCH (14:00)
--- NOTE | 2020-08-30 14:01 | Pharmacy Report ---
Pharmacy Glycemic Short Note 2 - Date of Service August 30, 2020 - Glycemic Short BSG Results (Last 24 hours): 08/29/20 08/29/20 08/30/20 16:46 20:08 00:56 POC Glucose 187 H 197 H 184 H 08/30/20 08/30/20 08/30/20 04:40 07:34 11:42 POC Glucose 119 H 103 H 197 H OUTPATIENT ANTIDIABETIC REGIMEN: * N/A * A1c = pending 08/28/20 ASSESSMENT: 08/30 * BSGs elevated yesterday, ranging 114-238 mg/dL * Received 144 units of insulin (38 units of NPH to cover steroids, 45 units of lantus, and 61 units of prandial/correctional bolus) * Dexamethasone previously ordered at HS, discussed with provider and will a djust to afternoon today and then morning starting tomorrow * Will delay NPH to be given with dexamethasone this afternoon - will give slightly reduced dose today given changing steroid time and fasting BSG of 103 mg/dL 08/29 * Pt has received 115 units of SQ insulin + ~ 60 units of IV insulin over the past 24hrs * 20 units of basal with Lantus * 38 units of basal for steroid induced hyperglycemia with NPH * 57 units of bolus with NovoLog * 60 units of IV insulin per IV insulin infusion * Severe hyperglycemia resolved with the addition of weight based SQ insulin + IV insulin infusion. * Pt continues on Dexamethasone 6mg IV daily; will continue with 0.4 units/kg NPH to cover DXM * Will add ~ 2/3 of IV insulin total dose to Sq basal bolus insulin regimen and titrate based on BSG trends. Increase Lantus from 20 to 45 units and tighten NovoLog CF/CR from 15/5 to 10/4 respectively. 08/28 * 60yo male without previous hx of DM. A1c pending. Pt with SEVERE hyperglycemia secondary to illness and steroids. Possibly undiagnosed DM. * Pt given 10mg IV DXM in ED; starting DXM 6mg IV daily for COVID PNA * Will start on a weight based insulin regimen for steroid induced hyperglycemia and titrate based on BSG trends. * The dose of NPH given is dependent on the steroid dose given * For steroid doses of equivalent prednisone 40mg/day or above NPH dose should be 0.4 units/kg * NPH dosing above is given in addition to patients basal insulin needs * Typically, patients will also need rapid-acting insulin with meals PLAN FOR INPATIENT GLYCEMIC CONTROL: * Basal insulin * Lantus 45 units SQ daily * Steroid induced hyperglycemia * NPH 32 units (0.4 units/kg of adjusted body weight) SQ daily with DXM * Bolus insulin * NovoLog per scale ACHS or Q6hrs while NPO * Goal Range: Low 110 mg/dL - High 140 mg/dL * Correction Factor: 10 mg/dL/unit * Nutritional / Prandial insulin per carb ratio of 1 unit per 2.5 grams CHO consumed PLAN FOR DISCHARGE: * A1c = 11.2% * HbA1c of 6.5% or greater indicates "diagnosis of diabetes" --> ADA recommendation is to "Treat Diabetes" DC Recs: * A1c is greater than or equal to 10% --> consider triple therapy with metformin + basal insulin + (GLP1-RA OR prandial insulin). * Metformin XR 500mg PO daily with evening meal. Typically the XR formulation of metformin is better tolerated than the immediate release formulation. Continue to titrate metformin dosing upwards as recommended. Dosage increases should be made in increments of 500 mg weekly, up to 2,000 mg/day PO, given in divided doses. Doses above 2000 mg/day may be better tolerated if divided and given 3 times per day with meals. Max: 2,550 mg/day PO, in divided doses * B12 supplementation may be necessary with terminal worker metformin * Basal insulin: Formulation TBD based on insurance coverage & dosing TBD based on inpatient trends * GPL1RA: This will be based off of insurance coverage and patient preference of weekly vs daily injection OR Prandial insulin: Formulation TBD based on insurance coverage & dosing TBD based on inpatient trends Support Patient Self-Management * Healthy Lifestyle (diet, exercise, and smoking cessation) * Disease self-management (SMBG) * Prevention of complications (BP, Lipid goals, Immunizations) * Consider outpatient Diabetes Self-Management Education & Support
[2020-08-30] MEDS: dexAMETHasone 6 MG in SYRINGE 0 ML IV SCH (14:48)
--- NOTE | 2020-08-30 16:37 | Hospitalist Progress Note ---
Date of Service August 30, 2020 Assessment & Plan (1) Acute respiratory failure with hypoxia: Admitted with acute hypoxemic respiratory failure secondary to COVID-19 pneumonia: Was hypoxic on admission required high flow O2 support. CT chest shows bilateral extensive infiltrate suggestive of viral pneumonia. Patient is beyond 10 days window of IV remdesivir treatment. Continued with IV dexamethasone, appreciate input from pulmonology Respiratory status gradually improving, Inflammatory markers, ferritin, C-reactive protein noted to improved as well. Patient has been off high flow for more than 24 hours, Requiring 6-7 L of oxygen via nasal cannula, no orthopnea, cough has improved no fever or chills Was started on IV Rocephin and doxycycline for possible underlying bacterial infection for mild elevation of procalcitonin, Treatment: Improvement we will DC Rocephin, continue p.o. doxycycline for 5 days Elevated LFTs: secondary to COVID-19 pneumonia,/infection Gradually improving, follow labs, Patient does not have any GI symptoms (2) Pneumonia due to COVID-19 virus: (3) Type 2 diabetes mellitus: New diagnosis, Hemoglobin A1c more than 11 Appreciate input from pharmacy for glycemic control On insulin sliding scale/basal Lantus Will be discharged on antidiabetic medication regimen. Need clinical follow-up with family physician for further diabetic management Full code: DVT prophylaxis: Subcu Lovenox Disposition: Expected to be discharged home when medically stable Admission and Anticipated Discharge Date Admission Date: August 28, 2020 Subjective Follow-up visit for acute hypoxic respiratory failure secondary to COVID-19 pneumonia: Patient reports feeling much better, less dyspnea on exertion, no cough, no fever chills encouraged to attempt prone ventilation as much as possible Denies of any body ache, no abdominal pain no nausea vomiting and appetite fair Review of Systems Review of Systems: All systems reviewed & are unremarkable except as noted in Subjective Physical Exam Physical Exam: Physical exam: General: No acute distress, alert awake oriented x3 HEENT: PERRLA, EOMI, Heart: Regular S1-S2, no carotid bruit, no JVD, no lower extremity edema Lungs: Diminished, no wheeze or rales Abdomen: Soft nontender, no organomegaly Extremity: Neuro: No focal neurological deficit normal speech, normal visual field, Psych: Alert awake oriented x3, normal affect Results & Data Results & Data ([facility]) Vital Signs (Past 12 Hours) Vital Signs Temp Pulse Resp BP Pulse Ox Pulse Ox 08/30/20 12:00 91 08/30/20 11:49 36.7 C 70 18 110/67 89 L 08/30/20 11:00 91 08/30/20 09:00 92 08/30/20 08:07 37.0 C 75 20 97/53 L 91 08/30/20 04:38 64 12 104/67 93
[2020-08-30] MEDS: DOXYCYCLINE HYCLATE 100 MG CAP PO SCH (22:00)
[2020-08-31 06:31] LABS: Est GFR (African American) 97.4 ml/min; Est GFR (Non-African American) 84.1 ml/min
[2020-08-31] MEDS: INSULIN ASPART 100 UNITS/ML 3 ML PEN SC SCH ×4 (07:45→22:03)
[2020-08-31] MEDS: ENOXAPARIN INJ 40 MG/0.4 ML SYR SQ SCH (07:59)
[2020-08-31] MEDS: DOXYCYCLINE HYCLATE 100 MG CAP PO SCH ×2 (07:59→21:03)
[2020-08-31] MEDS: dexAMETHasone 6 MG in SYRINGE 0 ML IV SCH (07:59)
[2020-08-31] MEDS: guaiFENesin 600 MG TABCR PO SCH ×2 (07:59→21:03)
[2020-08-31] MEDS: FLUTICASONE/VILANTEROL 100/25MCG 14 PUFFS/INHALER INH SCH (07:59)
[2020-08-31] MEDS: INSULIN HUMAN NPH SC SCH (08:00)
[2020-08-31] MEDS ORDERED: INSULIN GLARGINE SOLOSTAR 100 UNITS/ML 3 ML PEN SC SCH (09:00)
--- NOTE | 2020-08-31 09:57 | Pharmacy Report ---
Pharmacy Glycemic Short Note 2 - Date of Service August 31, 2020 - Glycemic Short BSG Results (Last 24 hours): 08/30/20 08/30/20 08/30/20 11:42 16:38 21:34 POC Glucose 197 H 189 H 185 H 08/31/20 07:02 POC Glucose 71 OUTPATIENT ANTIDIABETIC REGIMEN: * N/A * A1c: 11.2% (08/28/20) ASSESSMENT: 08/31 * BSGs yesterday of 103, 197, 189, and 185 mg/dL * Received 145 units of insulin (32 units of NPH to cover steroids, 45 units of lantus, and 68 units of prandial/correctional bolus) * Novolog carb ratio tightened yesterday - will continue * Fasting BSG of 71 mg/dL this morning - will decrease Lantus today * Continues on dexamethasone 6 mg IV daily 08/28 * 60yo male without previous hx of DM. A1c pending. Pt with SEVERE hyperglycemia secondary to illness and steroids. Possibly undiagnosed DM. * Pt given 10mg IV DXM in ED; starting DXM 6mg IV daily for COVID PNA * Will start on a weight based insulin regimen for steroid induced hyperglycemia and titrate based on BSG trends. * The dose of NPH given is dependent on the steroid dose given * For steroid doses of equivalent prednisone 40mg/day or above NPH dose should be 0.4 units/kg * NPH dosing above is given in addition to patients basal insulin needs * Typically, patients will also need rapid-acting insulin with meals PLAN FOR INPATIENT GLYCEMIC CONTROL: * Basal insulin - reduce by ~20% * Lantus 36 units SQ daily * Steroid induced hyperglycemia * NPH 38 units (0.4 units/kg) SQ daily with DXM * Bolus insulin * NovoLog per scale ACHS or Q6hrs while NPO * Goal Range: Low 110 mg/dL - High 140 mg/dL * Correction Factor: 10 mg/dL/unit * Nutritional / Prandial insulin per carb ratio of 1 unit per 2.5 grams CHO consumed PLAN FOR DISCHARGE: * A1c = 11.2% * HbA1c of 6.5% or greater indicates "diagnosis of diabetes" --> ADA recommendation is to "Treat Diabetes" DC Recs: * Likely dependent on whether or not steroids will be continued at time of discharge * A1c is greater than or equal to 10% --> consider triple therapy with metformin + basal insulin + (GLP1-RA OR prandial insulin). * Metformin XR 500mg PO daily with evening meal. Typically the XR formulation of metformin is better tolerated than the immediate release formulation. Continue to titrate metformin dosing upwards as recommended. Dosage increases should be made in increments of 500 mg weekly, up to 2,000 mg/day PO, given in divided doses. Doses above 2000 mg/day may be better tolerated if divided and given 3 times per day with meals. Max: 2,550 mg/day PO, in divided doses * B12 supplementation may be necessary with senior care metformin * Basal insulin: Formulation TBD based on insurance coverage & dosing TBD based on inpatient trends * GPL1RA: This will be based off of insurance coverage and patient preference of weekly vs daily injection OR Prandial insulin: Formulation TBD based on insurance coverage & dosing TBD based on inpatient trends Support Patient Self-Management * Healthy Lifestyle (diet, exercise, and smoking cessation) * Disease self-management (SMBG) * Prevention of complications (BP, Lipid goals, Immunizations) * Consider outpatient Diabetes Self-Management Education & Support
--- NOTE | 2020-08-31 16:47 | Hospitalist Progress Note ---
Date of Service August 31, 2020 Assessment & Plan (1) Acute respiratory failure with hypoxia: Admitted with acute hypoxemic respiratory failure secondary to COVID-19 pneumonia: Patient is status gradually improving Was hypoxic on admission required high flow O2 support. He on 4 L oxygen via nasal cannula only CT chest shows bilateral extensive infiltrate suggestive of viral pneumonia. Patient is beyond 10 days window of IV remdesivir treatment. Continued with IV dexamethasone, appreciate input from pulmonology Inflammatory markers, ferritin, C-reactive protein noted to improved as well. Patient has been off high flow for more than 24 hours, Cough has improved, fever or chills. Continue p.o. doxycycline for 5 days for bronchitis Elevated LFTs: Improvement of transaminitis secondary to COVID-19 pneumonia,/infection , follow labs, Patient does not have any GI symptoms (2) Pneumonia due to COVID-19 virus: (3) Type 2 diabetes mellitus: New diagnosis, Hemoglobin A1c more than 11 Appreciate input from pharmacy for glycemic control On insulin sliding scale/basal Lantus Will be discharged on antidiabetic medication regimen. Need clinical follow-up with family physician for further diabetic management Full code: DVT prophylaxis: Subcu Lovenox Disposition: Expected to be discharged home when medically stable Will need assessment for home O2 Admission and Anticipated Discharge Date Admission Date: August 28, 2020 Subjective Follow-up visit for acute hypoxic respiratory failure secondary to COVID-19 pneumonia: Sitting up on chair, currently on 4 L oxygen via nasal cannula, Reports improvement of shortness of breath, no orthopnea, trying to do prone ventilation as much as possible No fever or chills, minimal dry nonproductive cough No complaint nausea vomiting or abdominal discomfort Review of Systems Review of Systems: All systems reviewed & are unremarkable except as noted in Subjective Physical Exam Physical Exam: Physical exam: General: No acute distress, alert awake oriented x3 HEENT: PERRLA, EOMI, Heart: Regular S1-S2, no carotid bruit, no JVD, no lower extremity edema Lungs: Diminished, no wheeze or rales Abdomen: Soft nontender, no organomegaly Extremity: Neuro: No focal neurological deficit normal speech, normal visual field, Psych: Alert awake oriented x3, normal affect Results & Data Results & Data ([facility]) Vital Signs (Past 12 Hours) Vital Signs Temp Pulse Pulse Resp BP Pulse Ox Pulse Ox 08/31/20 16:41 36.7 C 68 20 105/68 95 08/31/20 11:40 36.5 C 72 18 115/66 95 08/31/20 11:22 96 08/31/20 10:29 94 08/31/20 08:00 96 08/31/20 07:39 36.5 C 60 20 104/54 L 92 08/31/20 07:00 53 L 08/31/20 04:51 36.5 C 55 L 18 103/65 98
[2020-09-01 07:55] LABS: Creatinine Clr Calc Pharmacy 92.1 ml/min; Est GFR (African American) 95.1 ml/min
[2020-09-01] MEDS: ENOXAPARIN INJ 40 MG/0.4 ML SYR SQ SCH (08:32)
[2020-09-01] MEDS: FLUTICASONE/VILANTEROL 100/25MCG 14 PUFFS/INHALER INH SCH (08:32)
[2020-09-01] MEDS: DOXYCYCLINE HYCLATE 100 MG CAP PO SCH ×2 (08:33→21:50)
[2020-09-01] MEDS: guaiFENesin 600 MG TABCR PO SCH ×2 (08:33→21:50)
[2020-09-01] MEDS: INSULIN HUMAN NPH SC SCH (08:49)
[2020-09-01] MEDS: INSULIN ASPART 100 UNITS/ML 3 ML PEN SC SCH ×4 (08:51→21:09)
[2020-09-01] MEDS: dexAMETHasone 6 MG in SYRINGE 0 ML IV SCH (08:51)
[2020-09-01] MEDS ORDERED: INSULIN GLARGINE SOLOSTAR 100 UNITS/ML 3 ML PEN SC SCH (09:00)
--- NOTE | 2020-09-01 09:47 | Pharmacy Report ---
Pharmacy Glycemic Short Note 2 - Date of Service September 01, 2020 - Glycemic Short BSG Results (Last 24 hours): 08/31/20 08/31/20 08/31/20 11:35 16:25 21:02 POC Glucose 137 H 109 H 170 H 09/01/20 09/01/20 08:03 08:04 POC Glucose 65 L* 74 OUTPATIENT ANTIDIABETIC REGIMEN: * N/A * A1c: 11.2% (08/28/20) ASSESSMENT: 09/01 * Pt has received 120 units of insulin over the past 24hrs * 36 units of basal with Lantus * 38 units of NPH for steroid induced hyperglycemia * 46 units of bolus with NovoLog * BSGs 15-857-453-170-65/74 mg/dl * Pt with mild hypoglycemia this AM; will decrease basal insulin with Lantus * Post-prandial BSGs all in goal range <180 mg/dl. No changes needed to CF/CR 08/31 * BSGs yesterday of 103, 197, 189, and 185 mg/dL * Received 145 units of insulin (32 units of NPH to cover steroids, 45 units of lantus, and 68 units of prandial/correctional bolus) * Novolog carb ratio tightened yesterday - will continue * Fasting BSG of 71 mg/dL this morning - will decrease Lantus today * Continues on dexamethasone 6 mg IV daily 08/28 * 60yo male without previous hx of DM. A1c pending. Pt with SEVERE hyperglycemia secondary to illness and steroids. Possibly undiagnosed DM. * Pt given 10mg IV DXM in ED; starting DXM 6mg IV daily for COVID PNA * Will start on a weight based insulin regimen for steroid induced hyperglycemia and titrate based on BSG trends. * The dose of NPH given is dependent on the steroid dose given * For steroid doses of equivalent prednisone 40mg/day or above NPH dose should be 0.4 units/kg * NPH dosing above is given in addition to patients basal insulin needs * Typically, patients will also need rapid-acting insulin with meals PLAN FOR INPATIENT GLYCEMIC CONTROL: * Basal insulin - reduce by ~12% * Lantus 32 units SQ daily * Steroid induced hyperglycemia * NPH 38 units (0.4 units/kg) SQ daily with DXM * Bolus insulin * NovoLog per scale ACHS or Q6hrs while NPO * Goal Range: Low 110 mg/dL - High 140 mg/dL * Correction Factor: 10 mg/dL/unit * Nutritional / Prandial insulin per carb ratio of 1 unit per 2.5 grams CHO consumed PLAN FOR DISCHARGE: * A1c = 11.2% * HbA1c of 6.5% or greater indicates "diagnosis of diabetes" --> ADA recommendation is to "Treat Diabetes" DC Recs: * Likely dependent on whether or not steroids will be continued at time of d ischarge * A1c is greater than or equal to 10% --> consider triple therapy with metformin + basal insulin + (GLP1-RA OR prandial insulin). * Metformin XR 500mg PO daily with evening meal. Typically the XR formulation of metformin is better tolerated than the immediate release formulation. Continue to titrate metformin dosing upwards as recommended. Dosage increases should be made in increments of 500 mg weekly, up to 2,000 mg/day PO, given in divided doses. Doses above 2000 mg/day may be better tolerated if divided and given 3 times per day with meals. Max: 2,550 mg/day PO, in divided doses * B12 supplementation may be necessary with longterm metformin * Basal insulin: Formulation TBD based on insurance coverage & dosing TBD based on inpatient trends * GPL1RA: This will be based off of insurance coverage and patient preference of weekly vs daily injection OR Prandial insulin: Formulation TBD based on insurance coverage & dosing TBD based on inpatient trends Support Patient Self-Management * Healthy Lifestyle (diet, exercise, and smoking cessation) * Disease self-management (SMBG) * Prevention of complications (BP, Lipid goals, Immunizations) * Consider outpatient Diabetes Self-Management Education & Support
--- NOTE | 2020-09-01 10:13 | Communication Note ---
Date of Service: September 01, 2020 pt is currently in room air, says feels shortness of breath while walking cough has resolved no fever or chills 2 step test ordered for home 02 needs plan to dc home in am Anika Kent MD
--- NOTE | 2020-09-01 11:24 | Hospitalist Progress Note ---
Date of Service September 01, 2020 Assessment & Plan (1) Acute respiratory failure with hypoxia: Admitted with acute hypoxemic respiratory failure secondary to COVID-19 pneumonia: Respiratory status improved, resolution of hypoxemic respiratory failure Was hypoxic on admission required high flow O2 support. Currently on room air, Ordered for two-step exercise to assess home oxygen need CT chest shows bilateral extensive infiltrate suggestive of viral pneumonia. Patient is beyond 10 days window of IV remdesivir treatment. Continued with IV dexamethasone, appreciate input from pulmonology Inflammatory markers, ferritin, C-reactive protein noted to improved as well. Cough has improved, fever or chills. Continue p.o. doxycycline for 5 days for bronchitis Elevated LFTs: Mild elevation noted, does not have any symptoms of nausea vomiting secondary to COVID-19 pneumonia,/infection Ordered for repeat lab (2) Pneumonia due to COVID-19 virus: (3) Type 2 diabetes mellitus: New diagnosis, Hemoglobin A1c more than 11 Appreciate input from pharmacy for glycemic control On insulin sliding scale/basal Lantus Will be discharged on antidiabetic medication regimen. Need clinical follow-up with family physician for further diabetic management Full code: DVT prophylaxis: Subcu Lovenox Disposition: Plan to discharge home possible tomorrow if remains medically stable. Admission and Anticipated Discharge Date Admission Date: August 28, 2020 Subjective Follow-up visit for acute hypoxic respiratory failure secondary to COVID-19 pneumonia: Patient is doing significantly better, has been off oxygen this morning, in room air No complaint of shortness of breath at rest, have some dyspnea on exertion with activity No cough no fever or chills Eager to be discharged home. Review of Systems Review of Systems: All systems reviewed & are unremarkable except as noted in Subjective Physical Exam Physical Exam: Physical exam: General: No acute distress, alert awake oriented x3 HEENT: PERRLA, EOMI, Heart: Regular S1-S2, no carotid bruit, no JVD, no lower extremity edema Lungs: Diminished, no wheeze or rales Abdomen: Soft nontender, no organomegaly Extremity: Neuro: No focal neurological deficit normal speech, normal visual field, Psych: Alert awake oriented x3, normal affect Results & Data Results & Data ([facility]) Vital Signs (Past 12 Hours) Vital Signs Temp Pulse Resp BP BP Pulse Ox 09/01/20 11:08 36.6 C 66 18 104/65 93 09/01/20 08:07 36.5 C 64 18 101/71 94 09/01/20 04:15 106/56 L 09/01/20 03:39 36.5 C 49 L 18 95/50 L 96 08/31/20 23:46 36.7 C 57 L 18 111/71 97
[2020-09-02 06:22] LABS: Albumin Level 2.4 gm/dl (3.4-5.0); Bilirubin Direct 0.1 mg/dl (0-0.2); Bilirubin,Total 0.5 mg/dl (0.2-1); Total Protein 6.4 gm/dl (6.4-8.2)
[2020-09-02] MEDS: ENOXAPARIN INJ 40 MG/0.4 ML SYR SQ SCH (08:37)
[2020-09-02] MEDS: guaiFENesin 600 MG TABCR PO SCH (08:38)
[2020-09-02] MEDS: DOXYCYCLINE HYCLATE 100 MG CAP PO SCH (08:38)
[2020-09-02] MEDS: FLUTICASONE/VILANTEROL 100/25MCG 14 PUFFS/INHALER INH SCH (08:39)
[2020-09-02] MEDS: INSULIN ASPART 100 UNITS/ML 3 ML PEN SC SCH ×2 (08:58→12:52)
[2020-09-02] MEDS ORDERED: INSULIN GLARGINE SOLOSTAR 100 UNITS/ML 3 ML PEN SC SCH (09:00)
[2020-09-02] MEDS ORDERED: FAMOTIDINE 20 MG TAB PO SCH (09:00)
--- NOTE | 2020-09-02 09:37 | Communication Note ---
Date of Service: September 02, 2020 pt is currently in room air , Dx CoVID > 10 days back received Update from [facility] infection control : Based on the CDC guidelines, this patient no longer requires transmission-based precautions (i.e., airborne precautions, contact precautions, and negative air pressure room) for COVID. Airborne/contact precaution d/daisy Anika Kent MD
--- NOTE | 2020-09-02 14:18 | Discharge Summary ---
Date of Service September 02, 2020 Admission HPI Per Admitting Provider DICTATED BY: Capo Nieto MD DATE OF ADMISSION: 08/28/2020 CHIEF COMPLAINT: Shortness of breath. HISTORY OF PRESENT ILLNESS: This is a 60-year-old male with no significant past medical history, having COVID kind of symptoms since about 11 days; On 08/22/2020, he went to the [facility]. Prior to that 4 days ago he was diagnosed with COVID and was having symptoms from 7 days prior to ER visit.. His oxygen levels were 94% on room air, ambulatory pulse ox was okay. So he was discharged on budesonide inhalers. However, the patient was getting progressively more short of breath, so that is why came here. He was saturating 88% on room air, currently on 6 liters he is saturating 94%. He is profusely sweating. He says he has a dry cough and fevers, sore throat and chest pain from the cough, poor appetite, not eating much. Food does not taste him good, but no loss of sense of smell or taste. No headache, no blurred visions, no earache, no runny nose, no nausea, no abdominal pain. Has diarrhea over several days. Denies any blood in stools or black stools. Normal bowel movements. Ambulating okay. Principal Diagnosis Acute hypoxemic respiratory failure due to [id number] Pneumonia due to COVID-19 virus Type 2 diabetes newly diagnosed Discharge Exam Physical exam: General: No acute distress, alert awake oriented x3 HEENT: PERRLA, EOMI, Heart: Regular S1-S2, no carotid bruit, no JVD, no lower extremity edema Lungs: Clear to auscultate, no wheeze or rales Abdomen: Soft nontender, no organomegaly Extremity: No cyanosis, no deformity, normal strength 5 out of 5 with upper and lower Neuro: No focal neurological deficit normal speech, normal visual field, Motor strength : normal both upper and lower extremity, sensation intact Psych: Alert awake oriented x3, normal affect Discharge Data Allergies Allergy/AdvReac Type Severity Reaction Status Date / Time Penicillins Allergy Unknown "Reaction Unverified 08/27/20 21:00 as Child" Consultations 08/27/20 21:41 ED Decision to Admit Stat 08/28/20 07:51 Consult Pulmonology Routine Ordered Studies 08/27/20 21:01 CT angio chest PE protocol Urgent Diabetes Follow up Diabetes Follow-up Needed for HgbA1c >9%,Newly Diagnosed Diabetes Hospital Course (1) Acute respiratory failure with hypoxia: Admitted with acute hypoxemic respiratory failure secondary to COVID-19 pneumonia: Resolved, has been on room air for more than 24 hours, no dyspnea on exertion, no hypoxia on activity no cough no fever or chills Admitted with shortness of breath of breath/cough was hypoxic on admission required high flow O2 support. CT chest shows bilateral extensive infiltrate suggestive of viral pneumonia. Patient was beyond 10 days window of IV remdesivir treatment. Patient was treated with IV dexamethasone, appreciate input from pulmonology Inflammatory markers, ferritin, C-reactive protein noted to improved as well. Cough has resolved, no fever or chills completed p.o. doxycycline for 5 days Respiratory failure resolved: Currently on room air, Two-step exercise shows no evidence of desaturation or hypoxia on activity or ambulation Patient was Covid positive on 08/18/2020 at [facility]. Respiratory status improved, in room air no hypoxia no cough Does not need any isolation on discharge Patient is instructed to continue to follow regular precaution wearing facemask while in public, social distancing, hand wash frequently Stable to be discharged home today Elevated LFTs: Mild elevation noted, does not have any symptoms of nausea vomiting secondary to COVID-19 pneumonia,/infection LFTs continue to improve, No GI symptoms no nausea vomiting or abdominal pain, discharged home today repeat LFT next week (2) Pneumonia due to COVID-19 virus: (3) Type 2 diabetes mellitus: New diagnosis, Hemoglobin A1c more than 11 Appreciate input from pharmacy for glycemic control On insulin sliding scale/basal Lantus Patient is discharged on long-acting Metformin XR 500 mg daily, will need continued dose titration/increased dose of 500 mg every week up to 2000 mg a day/1 g twice daily Ordered for a vitamin B12 supplement as patient will be on long-term Metformin Basal Lantus 20 units at bedtime, Patient given a glucometer, testing strips and lancets given for blood sugar checks 3 times daily, Appreciate input from certified adaptive physical educator. Patient is established with family physician follow-up at [facility] Will need referral to diabetic/MTM clinic for blood sugar management DVT prophylaxis: Subcu Lovenox Disposition: Able to be discharged home today Total Time Total Time Spent Total Time Spent (In Minutes): 40 minutes Total Time Includes: Examination of the Patient, Discharge Planning and Medication Reconciliation Discharge Plan Discharge Items Patient Disposition: Home - Self-Care Reason For Visit: SOB Discharge Diagnosis: Acute hypoxemic respiratory failure due to [id number] Pneumonia due to COVID-19 virus Type 2 diabetes newly diagnosed Activity: As commented below Activity Comment: As tolerated Non-emergency contact: Primary Care Provider Call non-emergency contact if: you have any medication questions Follow-up/Referrals: Kaleb Kennedy PA-C [Outside Practitioners] - 09/08/20 9:00 am (Date & Time 09/08/2020 9:00 AM Provider Kaleb Kennedy PA-C Department [facility] ) Diet: Carb Consistent or DM2 Addtl Attending Provider Instructions: Please take all medications as instructed on discharge list below. It is recommended that you follow-up with your primary care physician within 1-2 weeks of hospital discharge to ensure you are still doing well. Please call if you have any questions or problems. You can reach a [facility] hospitalist on duty at [facility] 24 hours a day by calling [phone] Addtl Global Implementation Manager Provider Instructions: You were diagnosed with diabetes, Hemoglobin A1c more than 10, which suggestive of your estimated blood sugar daily average more than 200 Started on antidiabetic medications, Metformin XR 500mg PO daily with evening meal. . Continue to titrate metformin Dosage increases should be made in increments of 500 mg weekly, up to 2,000 mg/day PO B12 supplementation ordered Check blood sugar X3 daily -before breakfast goal BSG 80-100/before lunch and before dinner keep log and bring it to next physician visit PRESCRIPTIONS Sent for 1.) OneTouch Verio test strips. 2.) OneTouch Delica lancets 33 gauge. Basal insulin: Lantus 20 U sub cutaneous daily Need to follow-up with diabetic clinic/MTM clinic for further diabetes manag ement and insulin adjustments Lab work : liver function test in a week , Pending Studies at Discharge: No Stand-Alone Forms: [facility] [employer], Smoking Cessation Medications and DC Order Prescriptions: New metformin 500 mg tablet extended release 24hr 500 mg PO DAILY Qty: 60 RF: 0 cyanocobalamin (vitamin B-12) [Vitamin B-12] 500 mcg tablet 500 mcg PO DAILY Qty: 30 RF: 0 Lantus Solostar U-100 Insulin 100 unit/mL (3 mL) Insulin Pen 20 unit SC DAILY Qty: 2 RF: 3 (DME) insulin admin supplies Insulin Pen See Rx Instructions .ROUTE .MEDSUPPLY Qty: 100 RF: 2 (DME) lancets [OneTouch Delica Lancets] 33 gauge misc See Rx Instructions .ROUTE .MEDSUPPLY Qty: 100 RF: 3 (DME) OneTouch Verio test strips Strip See Rx Instructions .ROUTE .MEDSUPPLY Qty: 100 RF: 3 Continued budesonide-formoterol [Symbicort] 80-4.5 mcg/actuation Hfa Aerosol Inhaler 2 puff INHALATION BID RF: 0 Discharge Orders: Discharge Order (Routine); Ordered 09/02/20 Ordered By: Anika Kent Admission Data Admit Date/Time: 08/28/20 00:12 Attending Provider: Anika Kent Admit Provider: Capo Nieto Primary Care Provider: PCP,NO Other Providers: Capo Nieto ; Leonela Sosa Other Interventions: Discharge Summary Assessment (RN) Last Done: 09/02/20 13:53
== END 2020-09-02 14:44 | disposition home or self-care (01) | DRG 177 ==
LOC: ED 19:27 → 2S 08-28 00:12 → 3W 09-01 13:48